=== PATIENT | female | born 1945 | race Caucasian/White ===

== ENCOUNTER 2020-05-29 11:50 | Inpatient (IN) ==
[2020-05-29] MEDS ORDERED: ALUM/MAG/SIMETH/LIDO VISC 1:1 30 ML BOTTLE PO STA (12:14)
[2020-05-29] MEDS ORDERED: ONDANSETRON 4 MG/2 ML VIAL IV STA (12:14)
[2020-05-29] MEDS ORDERED: PANTOPRAZOLE 40 MG VIAL IV STA (12:14)
[2020-05-29] MEDS ORDERED: SODIUM CHLORIDE 0.9% 1,000 ML IV STA ×2 (12:14→14:42)
[2020-05-29 13:06] LABS: Alanine Aminotransferase 20 U/L (13-56); Albumin 3.5 G/DL (3.4-5.0); Alkaline Phosphatase 105 U/L (45-117); Aspartate Amino Transferase 15 U/L (0-37); Blood Urea Nitrogen 37 MG/DL (7-18); Calcium 10.4 MG/DL (8.5-10.1); Estimated Glom Filtration Rate 22 ML/MIN; Glucose 161 MG/DL (74-106); Osmolality,Calculated 284.8 MOS/KG (273-304); Total Protein 7.3 G/DL (6.4-8.3)
[2020-05-29 13:09] LABS: Basophils % 0.4 % (0.0-0.8); Hematocrit 36.7 VOL% (35.7-47.0); Immature Granulocytes % 0.5 %; Immature Granulocytes Absolute 0.05 #; Lymphocytes # 1.8 10*3/uL (1.4-4.0); Lymphocytes % 17.2 % (21.3-54.2); Mean Corpuscular HGB Conc 29.2 GM/DL (32-36); Mean Corpuscular Volume 73.1 FL (87-102); Mean Platelet Volume 9.5 FL (9.6-12.0); Monocytes % 6.7 % (1.7-12.7); Neutrophils % 75.2 % (38.7-73.9); Platelet Count 451 T/CUMM (130-400); Red Blood Count 5.02 MC/CUMM (3.8-5.5); Red Cell Distribution Width 17.1 % (9.3-17.3); White Blood Count 10.5 T/CUMM (4-12)
[2020-05-29 13:10] LABS: Hemoglobin 10.7 GM/DL (12.0-16.0)
[2020-05-29] MEDS ORDERED: GLUCAGON 1 MG VIAL IM PRN (15:22)
[2020-05-29] MEDS ORDERED: ACETAMINOPHEN 325 MG TABLET PO PRN (15:22)
[2020-05-29] MEDS ORDERED: ONDANSETRON 4 MG/2 ML VIAL IV PRN (15:22)
[2020-05-29] MEDS ORDERED: DEXTROSE 50% 25 GM/50 ML VIAL IV PRN (15:22)
[2020-05-29] MEDS ORDERED: CALCIUM CARBONATE CHEW 500 MG TABLET PO PRN (15:22)
[2020-05-29] MEDS ORDERED: PROMETHAZINE 25 MG TABLET PO PRN (15:22)
[2020-05-29] MEDS ORDERED: LACTATED RINGERS 500 ML IV ONE (18:00)
[2020-05-29] MEDS: LACTATED RINGERS 1,000 ML IV SCH (20:45)
[2020-05-29] MEDS: INSULIN LISPRO 100 UNIT/ML SUBCUT SCH (21:35)
[2020-05-30] MEDS: LACTATED RINGERS 1,000 ML IV SCH ×3 (01:40→17:48)
[2020-05-30 05:58] LABS: Basophils % 0.6 % (0.0-0.8); Hematocrit 23.9 VOL% (35.7-47.0); Immature Granulocytes % 0.3 %; Immature Granulocytes Absolute 0.02 #; Lymphocytes # 2.1 10*3/uL (1.4-4.0); Lymphocytes % 29.1 % (21.3-54.2); Mean Corpuscular HGB Conc 29.7 GM/DL (32-36); Mean Platelet Volume 9.8 FL (9.6-12.0); Monocytes % 9.5 % (1.7-12.7); Neutrophils % 60.5 % (38.7-73.9); Platelet Count 453 T/CUMM (130-400); Red Blood Count 3.23 MC/CUMM (3.8-5.5); Red Cell Distribution Width 16.5 % (9.3-17.3)
[2020-05-30 05:59] LABS: Hemoglobin 7.1 GM/DL (12.0-16.0); White Blood Count 7.3 T/CUMM (4-12)
[2020-05-30 06:14] LABS: Calcium 8.7 MG/DL (8.5-10.1); Osmolality,Calculated 284.4 MOS/KG (273-304)
[2020-05-30 06:18] LABS: Ferritin 7.2 ng/ml (8-252)
[2020-05-30 06:23] LABS: Thyroid Stimulating Hormone 1.19 uIU/ml (0.358-3.74)
[2020-05-30 06:40] LABS: Folate 9.8 NG/ML (5.4-24.0)
[2020-05-30] MEDS ORDERED: SODIUM CHLORIDE 0.9% 1,000 ML IV PRN (06:54)
[2020-05-30 07:05] LABS: Bacteria,Urine Occasional /HPF (Few); Bilirubin,Urine Negative (Negative); Blood, Urine Negative (Negative); Glucose,Urine (UA) Negative (Negative); Ketones,Urine 5 mg/dL (Negative); Mucus,Urine Occasional /LPF (Occasional); Nitrite,Urine Negative (Negative); Protein,Urine Negative; RBC,Urine <1 /HPF (0-4); Squamous Epithelial Cell,Urine Occasional /HPF (0-10); Urine Appearance CLEAR (Clear); Urine Color Yellow (Yellow); Urine Specific Gravity 1.016 (1.001-1.035); Urine Urobilinogen < 2.0 EU/DL (0.2-1.0); WBC,Urine <1 /HPF (0-6)
[2020-05-30] MEDS ORDERED: SODIUM CHLORIDE 0.9% 1,000 ML IV SCH (08:00)
[2020-05-30] MEDS: INSULIN LISPRO 100 UNIT/ML SUBCUT SCH ×4 (09:13→21:00)
[2020-05-30] MEDS ORDERED: ROPIVACAINE 0.5% 30 ML VIAL ONE (10:44)
[2020-05-30] MEDS ORDERED: DEXAMETHASONE 4 MG/1 ML VIAL ONE (10:44)
[2020-05-30] MEDS ORDERED: SUGAMMADEX 200 MG/2 ML VIAL IV ONE (12:35)
[2020-05-30] MEDS ORDERED: SEVOFLURANE 1 UNIT/15 MINUTE INH ONE (13:14)
[2020-05-30] MEDS ORDERED: LIDOCAINE 2% 5 ML VIAL ONE (13:14)
[2020-05-30] MEDS ORDERED: ACETAMINOPHEN 1,000 MG/100 ML VIAL IV ONE (13:14)
[2020-05-30] MEDS ORDERED: MIDAZOLAM 2 MG/2 ML VIAL ONE (13:14)
[2020-05-30] MEDS ORDERED: fentaNYL 250 MCG/5 ML VIAL ONE (13:14)
[2020-05-30] MEDS ORDERED: ONDANSETRON 4 MG/2 ML VIAL ONE ×2 (13:14→13:33)
[2020-05-30] MEDS ORDERED: propofoL 200 MG/20 ML VIAL IV ONE (13:14)
[2020-05-30] MEDS ORDERED: ROCURONIUM 100 MG/10 ML VIAL IV ONE (13:15)
[2020-05-30] MEDS ORDERED: SUCCINYLCHOLINE 200 MG/10 ML VIAL ONE (13:15)
[2020-05-30] MEDS ORDERED: SODIUM CHLORIDE 0.9% 1,000 ML IV ONE (13:15)
[2020-05-30] MEDS ORDERED: HYDROmorphone 2 MG/1 ML VIAL ONE (13:33)
[2020-05-30] MEDS: HYDROmorphone 2 MG/1 ML VIAL IV PRN ×2 (13:35→13:50)
[2020-05-30] MEDS ORDERED: ONDANSETRON 4 MG/2 ML VIAL IV PRN (13:36)
[2020-05-30] MEDS ORDERED: hydrALAZINE 20 MG/1 ML VIAL ONE (13:52)
[2020-05-30] MEDS ORDERED: hydrALAZINE 20 MG/1 ML VIAL IV ONE (14:01)
[2020-05-30 15:24] LABS: Hematocrit 36.4 VOL% (35.7-47.0); Hemoglobin 11.3 GM/DL (12.0-16.0)
[2020-05-30] MEDS ORDERED: NALOXONE 0.4 MG/ML VIAL IV PRN (17:19)
[2020-05-30] MEDS: HYDROmorphone PCA 30 MG/30 ML SYRINGE IV SCH (17:49)
[2020-05-31] MEDS: LACTATED RINGERS 1,000 ML IV SCH ×3 (00:30→16:37)
[2020-05-31 05:43] LABS: Basophils % 0.1 % (0.0-0.8); Hematocrit 32.8 VOL% (35.7-47.0); Hemoglobin 9.8 GM/DL (12.0-16.0); Immature Granulocytes % 0.3 %; Immature Granulocytes Absolute 0.02 #; Lymphocytes # 0.9 10*3/uL (1.4-4.0); Lymphocytes % 11.6 % (21.3-54.2); Mean Corpuscular HGB Conc 29.9 GM/DL (32-36); Mean Corpuscular Volume 78.3 FL (87-102); Mean Platelet Volume 9.5 FL (9.6-12.0); Monocytes % 7.7 % (1.7-12.7); Neutrophils % 80.3 % (38.7-73.9); Platelet Count 397 T/CUMM (130-400); Red Blood Count 4.19 MC/CUMM (3.8-5.5); White Blood Count 7.9 T/CUMM (4-12)
[2020-05-31 06:07] LABS: Band Neutrophils 11 % (0-10); Hypochromasia 1+; Lymphocytes 13 % (20-55); Microcytosis Slight; Ovalocytes Slight; Platelet Estimate Adequate; Segmented Neutrophils 66 % (50-85); Total Cells Counted 100
[2020-05-31 06:14] LABS: Calcium 8.3 MG/DL (8.5-10.1); Osmolality,Calculated 289.1 MOS/KG (273-304)
[2020-05-31] MEDS: INSULIN LISPRO 100 UNIT/ML SUBCUT SCH ×4 (08:25→20:59)
[2020-05-31] MEDS ORDERED: PHENOL 1.4% THROAT SPRAY 177 ML BOTTLE PO PRN (11:22)
[2020-05-31] MEDS: PANTOPRAZOLE 40 MG VIAL IV SCH ×2 (15:43→20:37)
[2020-05-31] MEDS: HYDROmorphone PCA 30 MG/30 ML SYRINGE IV SCH (16:37)
[2020-06-01] MEDS: LACTATED RINGERS 1,000 ML IV SCH ×3 (00:44→17:16)
[2020-06-01 06:22] LABS: Basophils % 0.2 % (0.0-0.8); Hematocrit 31.6 VOL% (35.7-47.0); Hemoglobin 9.6 GM/DL (12.0-16.0); Immature Granulocytes % 0.5 %; Immature Granulocytes Absolute 0.04 #; Lymphocytes # 1.3 10*3/uL (1.4-4.0); Lymphocytes % 14.9 % (21.3-54.2); Mean Corpuscular HGB Conc 30.4 GM/DL (32-36); Mean Corpuscular Volume 78.4 FL (87-102); Mean Platelet Volume 9.4 FL (9.6-12.0); Monocytes % 9.7 % (1.7-12.7); Neutrophils % 74.7 % (38.7-73.9); Platelet Count 366 T/CUMM (130-400); Red Blood Count 4.03 MC/CUMM (3.8-5.5); Red Cell Distribution Width 17.9 % (9.3-17.3); White Blood Count 8.4 T/CUMM (4-12)
[2020-06-01 06:51] LABS: Calcium 8.8 MG/DL (8.5-10.1); Osmolality,Calculated 278.7 MOS/KG (273-304)
[2020-06-01] MEDS: INSULIN LISPRO 100 UNIT/ML SUBCUT SCH ×4 (08:19→21:35)
[2020-06-01 08:33] LABS: Band Neutrophils 24 % (0-10); Eosinophils 3 % (0-10); Lymphocytes 16 % (20-55); Platelet Estimate Normal; Segmented Neutrophils 46 % (50-85); Total Cells Counted 100
[2020-06-01 08:34] LABS: Anisocytosis 2+
[2020-06-01] MEDS: CYANOCOBALAMIN 1000 MCG/1 ML VIAL SUBCUT SCH (09:06)
[2020-06-01] MEDS: PANTOPRAZOLE 40 MG VIAL IV SCH ×2 (17:02→20:27)
[2020-06-01] MEDS: HYDROmorphone PCA 30 MG/30 ML SYRINGE IV SCH (17:04)
[2020-06-01] MEDS: ALBUTEROL/IPRATROPIUM 3 ML NEB RESP TX PRN (20:39)
[2020-06-02] MEDS: LACTATED RINGERS 1,000 ML IV SCH ×3 (02:06→18:10)
[2020-06-02 05:12] LABS: Basophils % 0.3 % (0.0-0.8); Eosinophils % 0.2 % (0.00-10.9); Hematocrit 28.6 VOL% (35.7-47.0); Hemoglobin 8.6 GM/DL (12.0-16.0); Immature Granulocytes % 0.7 %; Immature Granulocytes Absolute 0.04 #; Lymphocytes # 1.2 10*3/uL (1.4-4.0); Lymphocytes % 19.8 % (21.3-54.2); Mean Corpuscular HGB Conc 30.1 GM/DL (32-36); Mean Corpuscular Volume 77.5 FL (87-102); Mean Platelet Volume 9.6 FL (9.6-12.0); Monocytes % 10.6 % (1.7-12.7); Neutrophils % 68.4 % (38.7-73.9); Platelet Count 348 T/CUMM (130-400); Red Blood Count 3.69 MC/CUMM (3.8-5.5); Red Cell Distribution Width 17.6 % (9.3-17.3)
[2020-06-02 05:38] LABS: Calcium 8.2 MG/DL (8.5-10.1); Osmolality,Calculated 272.8 MOS/KG (273-304)
[2020-06-02 06:13] LABS: Band Neutrophils 2 % (0-10); Eosinophils 1 % (0-10); Lymphocytes 20 % (20-55); Segmented Neutrophils 69 % (50-85); Total Cells Counted 100
[2020-06-02 06:14] LABS: Anisocytosis 1+; Ovalocytes 1+; Platelet Estimate Normal
[2020-06-02] MEDS: INSULIN LISPRO 100 UNIT/ML SUBCUT SCH ×4 (08:06→21:12)
[2020-06-02] MEDS: PANTOPRAZOLE 40 MG VIAL IV SCH ×2 (09:06→20:27)
[2020-06-02] MEDS: CYANOCOBALAMIN 1000 MCG/1 ML VIAL SUBCUT SCH (09:07)
[2020-06-02] MEDS: ALBUTEROL/IPRATROPIUM 3 ML NEB RESP TX PRN (13:50)
[2020-06-02] MEDS: HYDROmorphone PCA 30 MG/30 ML SYRINGE IV SCH (16:58)
[2020-06-03 05:53] LABS: Basophils % 0.2 % (0.0-0.8); Hematocrit 27.9 VOL% (35.7-47.0); Hemoglobin 8.4 GM/DL (12.0-16.0); Immature Granulocytes % 0.7 %; Immature Granulocytes Absolute 0.04 #; Lymphocytes # 1.1 10*3/uL (1.4-4.0); Lymphocytes % 19.1 % (21.3-54.2); Mean Corpuscular HGB Conc 30.1 GM/DL (32-36); Mean Corpuscular Volume 77.5 FL (87-102); Mean Platelet Volume 9.1 FL (9.6-12.0); Monocytes % 11.1 % (1.7-12.7); Neutrophils % 68.9 % (38.7-73.9); Platelet Count 337 T/CUMM (130-400); Red Cell Distribution Width 17.8 % (9.3-17.3); White Blood Count 5.5 T/CUMM (4-12)
[2020-06-03 06:11] LABS: Eosinophils 3 % (0-10); Hypochromasia 1+; Lymphocytes 13 % (20-55); Platelet Estimate Adequate; Segmented Neutrophils 74 % (50-85); Total Cells Counted 100
[2020-06-03 06:12] LABS: Microcytosis Slight
[2020-06-03 06:20] LABS: Calcium 8.6 MG/DL (8.5-10.1); Osmolality,Calculated 276.4 MOS/KG (273-304)
[2020-06-03] MEDS: INSULIN LISPRO 100 UNIT/ML SUBCUT SCH ×4 (08:04→21:02)
[2020-06-03] MEDS: LACTATED RINGERS 1,000 ML IV SCH (10:01)
[2020-06-03] MEDS: PANTOPRAZOLE 40 MG VIAL IV SCH ×2 (10:04→21:09)
[2020-06-03] MEDS: CYANOCOBALAMIN 1000 MCG/1 ML VIAL SUBCUT SCH (10:05)
[2020-06-03] MEDS ORDERED: ALBUTEROL 2.5 MG/3 ML NEB RESP TX PRN (10:11)
[2020-06-03] MEDS ORDERED: HYDROmorphone 2 MG/1 ML VIAL IV PRN (10:12)
[2020-06-03] MEDS ORDERED: FAMOTIDINE 20 MG/2 ML VIAL IV ONE (19:30)
[2020-06-03] MEDS ORDERED: ACETAMINOPHEN 500 MG TABLET PO ONE (19:30)
[2020-06-03] MEDS ORDERED: IRON SUCROSE 300 MG in SODIUM CHLORIDE 0.9% 100 ML IV ONE (20:00)
[2020-06-03] MEDS ORDERED: NON-FORMULARY MEDICATION (Tiotropium Bromide [Spiriva With Handihaler] 18 mcg Capsule, W/I INH SCH (21:00)
[2020-06-03] MEDS ORDERED: NON-FORMULARY MEDICATION (Tiotropium-Olodaterol [Stiolto Respimat] 2.5-2.5 mcg/actuation m INH SCH (21:00)
[2020-06-03] MEDS: PROPRANOLOL 20 MG TABLET PO SCH (21:13)
[2020-06-03] MEDS: ASPIRIN EC 81 MG TABLET PO SCH (21:13)
[2020-06-04] MEDS: LACTATED RINGERS 1,000 ML IV SCH ×2 (00:31→01:32)
[2020-06-04 05:47] LABS: Basophils % 0.4 % (0.0-0.8); Eosinophils # 0.1 10*3/uL (0.0-0.87); Hematocrit 30.2 VOL% (35.7-47.0); Hemoglobin 9.4 GM/DL (12.0-16.0); Immature Granulocytes Absolute 0.07 #; Lymphocytes # 0.7 10*3/uL (1.4-4.0); Lymphocytes % 10.2 % (21.3-54.2); Mean Corpuscular HGB Conc 31.1 GM/DL (32-36); Mean Corpuscular Volume 75.7 FL (87-102); Monocytes % 9.6 % (1.7-12.7); Neutrophils % 77.8 % (38.7-73.9); Platelet Count 315 T/CUMM (130-400); Red Blood Count 3.99 MC/CUMM (3.8-5.5); Red Cell Distribution Width 18.1 % (9.3-17.3)
[2020-06-04] MEDS: LEVOTHYROXINE 50 MCG TABLET PO SCH (06:09)
[2020-06-04 06:21] LABS: Calcium 8.9 MG/DL (8.5-10.1); Osmolality,Calculated 278.4 MOS/KG (273-304)
[2020-06-04 06:34] LABS: Band Neutrophils 1 % (0-10); Eosinophils 3 % (0-10); Hypochromasia 1+; Lymphocytes 6 % (20-55); Microcytosis 1+; Ovalocytes Slight; Platelet Estimate Adequate; Segmented Neutrophils 79 % (50-85); Total Cells Counted 100
[2020-06-04] MEDS: INSULIN LISPRO 100 UNIT/ML SUBCUT SCH ×4 (09:04→21:55)
[2020-06-04] MEDS: ENOXAPARIN 40 MG/0.4 ML SYRINGE SUBCUT SCH (10:24)
[2020-06-04] MEDS: PANTOPRAZOLE 40 MG VIAL IV SCH ×2 (10:24→21:55)
[2020-06-04] MEDS: CYANOCOBALAMIN 1000 MCG/1 ML VIAL SUBCUT SCH (10:25)
[2020-06-04] MEDS: MONTELUKAST 10 MG TABLET PO SCH (10:25)
[2020-06-04] MEDS: lisinopriL 10 MG TABLET PO SCH (10:41)
[2020-06-04] MEDS: PIPERACILLIN/TAZOBACTAM 3,375 MG in SODIUM CHLORIDE 0.9% 100 ML IV SCH (17:10)
[2020-06-04] MEDS: ASPIRIN EC 81 MG TABLET PO SCH (21:51)
[2020-06-04] MEDS: PROPRANOLOL 20 MG TABLET PO SCH (21:51)
[2020-06-05] MEDS: PIPERACILLIN/TAZOBACTAM 3,375 MG in SODIUM CHLORIDE 0.9% 100 ML IV SCH (01:28)
[2020-06-05] MEDS: LEVOTHYROXINE 50 MCG TABLET PO SCH (06:11)
[2020-06-05 06:26] LABS: Basophils % 0.7 % (0.0-0.8); Hematocrit 27.6 VOL% (35.7-47.0); Hemoglobin 8.6 GM/DL (12.0-16.0); Immature Granulocytes % 1.2 %; Immature Granulocytes Absolute 0.07 #; Lymphocytes # 1.2 10*3/uL (1.4-4.0); Lymphocytes % 20.7 % (21.3-54.2); Mean Corpuscular HGB Conc 31.2 GM/DL (32-36); Mean Platelet Volume 10.5 FL (9.6-12.0); Monocytes % 10.7 % (1.7-12.7); Neutrophils % 66.7 % (38.7-73.9); Platelet Count 325 T/CUMM (130-400); Red Blood Count 3.63 MC/CUMM (3.8-5.5); Red Cell Distribution Width 18.3 % (9.3-17.3); White Blood Count 5.9 T/CUMM (4-12)
[2020-06-05 06:57] LABS: Hypochromasia 2+; Microcytosis 1+; Ovalocytes Slight; Platelet Estimate Adequate
[2020-06-05 07:00] LABS: Calcium 8.5 MG/DL (8.5-10.1); Osmolality,Calculated 280.3 MOS/KG (273-304)
[2020-06-05] MEDS ORDERED: POTASSIUM CHLORIDE 20 MEQ TABLET PO PRN (07:29)
[2020-06-05] MEDS: AMOXICILLIN/CLAV 875 MG TABLET PO SCH ×2 (07:48→21:41)
[2020-06-05] MEDS: INSULIN LISPRO 100 UNIT/ML SUBCUT SCH ×4 (07:49→23:23)
[2020-06-05] MEDS: CYANOCOBALAMIN 1000 MCG/1 ML VIAL SUBCUT SCH (09:27)
[2020-06-05] MEDS: PANTOPRAZOLE 40 MG VIAL IV SCH ×2 (09:27→21:42)
[2020-06-05] MEDS: ENOXAPARIN 40 MG/0.4 ML SYRINGE SUBCUT SCH (09:30)
[2020-06-05] MEDS: lisinopriL 10 MG TABLET PO SCH (09:31)
[2020-06-05] MEDS: MONTELUKAST 10 MG TABLET PO SCH (09:31)
[2020-06-05] MEDS ORDERED: POTASSIUM CHLORIDE 20 MEQ TABLET PO ONE (10:14)
[2020-06-05] MEDS ORDERED: MAGNESIUM SULF RIDER 2 GM in PREMIX 1 EACH IV ONE (10:30)
[2020-06-05] MEDS: POTASSIUM CHLORIDE 20 MEQ/15 ML UDCUP PO PRN ×3 (12:30→16:48)
[2020-06-05] MEDS: ASPIRIN EC 81 MG TABLET PO SCH (21:41)
[2020-06-05] MEDS: PROPRANOLOL 20 MG TABLET PO SCH (21:42)
[2020-06-06 05:37] LABS: Basophils % 0.6 % (0.0-0.8); Eosinophils # 0.4 10*3/uL (0.0-0.87); Eosinophils % 6.5 % (0.00-10.9); Hematocrit 29.8 VOL% (35.7-47.0); Hemoglobin 8.9 GM/DL (12.0-16.0); Immature Granulocytes % 1.2 %; Immature Granulocytes Absolute 0.08 #; Lymphocytes % 31.6 % (21.3-54.2); Mean Corpuscular HGB Conc 29.9 GM/DL (32-36); Mean Corpuscular Volume 78.6 FL (87-102); Mean Platelet Volume 9.9 FL (9.6-12.0); Monocytes % 8.6 % (1.7-12.7); Neutrophils % 51.5 % (38.7-73.9); Platelet Count 413 T/CUMM (130-400); Red Blood Count 3.79 MC/CUMM (3.8-5.5); Red Cell Distribution Width 18.8 % (9.3-17.3); White Blood Count 6.4 T/CUMM (4-12)
[2020-06-06 06:19] LABS: Calcium 8.8 MG/DL (8.5-10.1); Osmolality,Calculated 281.1 MOS/KG (273-304)
[2020-06-06] MEDS: LEVOTHYROXINE 50 MCG TABLET PO SCH (07:16)
[2020-06-06] MEDS: ENOXAPARIN 40 MG/0.4 ML SYRINGE SUBCUT SCH (09:28)
[2020-06-06] MEDS: CYANOCOBALAMIN 1000 MCG/1 ML VIAL SUBCUT SCH (09:29)
[2020-06-06] MEDS: PANTOPRAZOLE 40 MG VIAL IV SCH (09:32)
[2020-06-06] MEDS: lisinopriL 10 MG TABLET PO SCH (09:33)
[2020-06-06] MEDS: MONTELUKAST 10 MG TABLET PO SCH (09:33)
[2020-06-06] MEDS: AMOXICILLIN/CLAV 875 MG TABLET PO SCH (10:16)
[2020-06-06] MEDS: INSULIN LISPRO 100 UNIT/ML SUBCUT SCH ×2 (10:20→11:34)
[2020-06-06 11:29] VITALS: BP 151/65
== END 2020-06-06 16:15 | disposition home or self-care (01) | DRG 330 ==
LOC: N.ED 11:50 → N.EDINP 15:03 → SUATTDRO 15:03 → N.2W 15:27 → N.3E 18:03
PROVIDERS: ADMIT Internal Medicine; ATTEND Internal Medicine